=== PATIENT | male | born 1990 | race Caucasian/White ===

== ENCOUNTER 2018-05-14 06:53 | Day surgery (SDC) | payer MEDICAID ==
[2018-05-14] MEDS ORDERED: Midazolam 1 MG/ML 2 ML SDV IV ONE (06:54)
[2018-05-14] MEDS ORDERED: Propofol 200 MG/20 ML SDV IV ONE (06:54)
[2018-05-14] MEDS ORDERED: Sodium Chloride 0.9% 10 ML Syringe FLUSH PRN (07:30)
[2018-05-14] MEDS: Lactated Ringers 1,000 ML IV SCH (07:45)
--- NOTE | 2018-05-14 09:21 | PCM.OPNOTE ---
- General Post-Op/Procedure Note Date of Surgery/Procedure: 05/14/18 Operative Procedure(s): c scope with bx Findings: sigmoid colon polyp Pre Op Diagnosis: bleeding per rectum Post-Op Diagnosis: sigmoid colon polyp Anesthesia Technique: MAC Primary Surgeon: Alen Naidu Anesthesia Provider: Germaine Ash Pathology: colon polyp Complications: None Condition: Good Free Text/Narrative:: see dictation
--- NOTE | 2018-05-14 09:52 | OR ---
DATE OF OPERATION: 05/14/2018 SURGEON: Alen Naidu MD PROCEDURE PERFORMED: Colonoscopy with hot loop snare biopsy. PREOPERATIVE DIAGNOSIS: Bright red blood per rectum. POSTOPERATIVE DIAGNOSIS: Sigmoid colon polyp. INDICATIONS FOR PROCEDURE: This is a 27-year-old genetic male transitioning to female, who was referred with a history of bright red blood per rectum. He was offered and accepted colonoscopy. PROCEDURE IN DETAIL: After an excellent IV sedation was administered, digital rectal exam was performed. No marked abnormality was noted. Flexible colonoscope was inserted and advanced to the cecum. The prep was excellent. The following findings were noted: Ascending colon, unremarkable. Transverse colon, unremarkable. Descending colon, unremarkable. Sigmoid, at the distal sigmoid, polypoid lesion, biopsied with the hot snare and sent for permanent. Rectum, unremarkable anus. No marked hemorrhoidal tissue was noted. Colon was deflated. Scope was removed. Patient tolerated the procedure well, was taken to recovery in good condition. Results by letter. /[id number] /MODL
== END 2018-05-14 10:30 | disposition home or self-care (01) ==
LOC: FB.SDS 06:53
PROVIDERS: ATTEND Surgery
DX: K92.1 Melena (principal); K63.5 Polyp of colon; E66.9 Obesity, unspecified; Z68.32 Body mass index [BMI] 32.0-32.9, adult; F41.1 Generalized anxiety disorder; F33.1 Major depressive disorder, recurrent, moderate
CPT/HCPCS: 45385; 88305; J2250; J2704; J7120

== ENCOUNTER 2018-09-23 14:51 | Emergency (ER) | payer MEDICAID ==
--- NOTE | 2018-09-23 15:45 | EDM.PDOC ---
ED HPI GENERAL MEDICAL PROBLEM - General Chief Complaint: Gastrointestinal Problem Stated Complaint: RECTAL BLEEDING Time Seen by Provider: 09/23/18 15:22 Source of Information: Reports: Patient History Limitations: Reports: No Limitations - History of Present Illness INITIAL COMMENTS - FREE TEXT/NARRATIVE: 27-year-old transgender (male who is transitioning to female) who reports she has been having some rectal pain and intermittent bright red blood per rectum for 4-5 months and in fact had a colonoscopy performed in April by Dr. Naidu for similar symptoms which showed a sigmoid polyp that turned out to be benign and was completely normal otherwise who reports today at approximately 2: 30 PM had a bowel movement that had stool with bright red blood. She reports she does have pain in her perianal area and that pain is present when she has bowel movements. She reports pain is a 4/10 and is a dull pain with some sharp spikes when passing stool. She has no abdominal pain. No weakness or dizziness. She has had no nausea or vomiting. She has had no fevers. He has been able to eat and drink normally. She denies any trauma to her perianal area and she denies any recent sexual intercourse (she reports it's been about 6 months or longer since she had sexual intercourse) and she also denies placing anything in her rectum. There are no other associated signs or symptoms. There are no other modifying factors. 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: Other (see below) rectal pain Pain Score (Numeric/FACES): 4 - Related Data Allergies Allergy/AdvReac Type Severity Reaction Status Date / Time Poultry Allergy Airway Verified 09/23/18 15:18 Tightness Home Meds: Home Meds ClonazePAM [KlonoPIN] 0.5 tab PO BID PRN 03/20/18 [History] Estradiol 2 tab PO DAILY 03/20/18 [History] Spironolactone [Aldactone] 100 mg PO BID 03/20/18 [History] FLUoxetine HCl [Fluoxetine HCl] 1 cap PO DAILY 04/22/18 [History] Citalopram Hydrobromide [Celexa] 20 mg PO DAILY 05/14/18 [History] Docusate Sodium [Colace] 100 mg PO BID #60 cap 09/23/18 [Rx] Hydrocortisone Acetate [Anusol-Hc] 25 mg RC BID 5 Days #10 supp.rect 09/23/18 [ Rx] Past Medical History Gastrointestinal History: Reports: Colon Polyp Psychiatric History: Reports: ADHD, Anxiety, Depression, Panic Attack Other Psychiatric History: GENDER DYSPHORIA - Infectious Disease History Infectious Disease History: Reports: Chicken Pox - Past Surgical History Other HEENT Surgeries/Procedures: [place] teeth removed. GI Surgical History: Reports: Colonoscopy Social & Family History - Tobacco Use Smoking Status *Q: Unknown Ever Smoked (Nonsmoker) Second Hand Smoke Exposure: No - Caffeine Use Caffeine Use: Reports: Energy Drinks, Soda - Alcohol Use Alcohol Use History: No - Recreational Drug Use Recreational Drug Use: No - Living Situation & Occupation Occupation: Disabled (Transgender) ED ROS GENERAL - Review of Systems Review Of Systems: See Below Constitutional: Reports: No Symptoms HEENT: Reports: No Symptoms Respiratory: Reports: No Symptoms Cardiovascular: Reports: No Symptoms Endocrine: Reports: No Symptoms GI/Abdominal: Reports: Hematochezia, Other (Reports pain with bowel movements for some time with sometimes hard stools). Denies: Abdominal Pain : Reports: No Symptoms Musculoskeletal: Reports: No Symptoms Skin: Reports: No Symptoms Neurological: Reports: No Symptoms Hematologic/Lymphatic: Reports: No Symptoms Immunologic: Reports: No Symptoms ED EXAM, GENERAL - Physical Exam Exam: See Below Free Text/Narrative:: Orthostatic vital signs were performed and there were no orthostatic changes in blood pressure or pulse. Exam Limited By: No Limitations General Appearance: Alert, Anxious (But otherwise no distress), Obese Eye Exam: Bilateral Eye: EOMI, Normal Inspection, PERRL Ears: Normal External Exam Ear Exam: Bilateral Ear: Auricle Normal Nose: Normal Inspection, Normal Mucosa, No Blood Throat/Mouth: Normal Inspection, Normal Oropharynx, Normal Voice, No Airway Compromise Head: Atraumatic, Normocephalic Neck: Normal Inspection, Supple, Non-Tender, Full Range of Motion Respiratory/Chest: No Respiratory Distress, Lungs Clear, Normal Breath Sounds, No Accessory Muscle Use, Chest Non-Tender Cardiovascular: Normal Peripheral Pulses, Regular Rate, Rhythm, No JVD Peripheral Pulses: 2+: Radial (L), Radial (R) GI/Abdominal: Normal Bowel Sounds, Soft, Non-Tender, No Distention, No Mass Rectal (Males) Exam: Other (Some bright red blood noted around anus. No definite fissure or lesion seen. No erythema) Back Exam: Normal Inspection Extremities: Normal Inspection, Normal Range of Motion, Non-Tender, No Pedal Edema, Normal Capillary Refill Neurological: Alert, Oriented, CN II-XII Intact, Normal Cognition, No Motor/ Sensory Deficits Skin Exam: Warm, Dry, Intact, Normal Color, No Rash Course - Vital Signs Last Recorded V/S: Last Vital Signs Temp 36.1 C 09/23/18 15:40 Pulse 77 09/23/18 15:05 Resp 18 09/23/18 15:05 BP 114/63 09/23/18 15:05 Pulse Ox 99 09/23/18 15:05 Orthostatic Blood Pressure [ 117/77 Standing] Orthostatic Blood Pressure [ 122/79 Sitting] Orthostatic Blood Pressure [ 131/76 Supine] - Orders/Labs/Meds Orders: Active Orders 24 hr Category Date Time Status Orthostatic Vital Signs [RC] ASDIRECTED Care 09/23/18 15:45 Active Labs: Laboratory Tests 09/23/18 09/23/18 09/23/18 Range/Units 16:00 16:00 16:00 WBC 13.4 H (4.5-12.0) X10-3/uL RBC 4.95 (4.30-5.75) x10(6)uL Hgb 14.5 (13.5-17.8) g/dL Hct 42.4 (30.0-51.3) % MCV 85.6 (80-96) fL MCH 29.2 (27.7-33.6) pg MCHC 34.2 (32.2-35.4) g/dL RDW 12.5 (11.5-15.5) % Plt Count 310 (125-369) X10(3)uL MPV 9.0 (7.4-10.4) fL Neut % (Auto) 71.7 (46-82) % Lymph % (Auto) 18.3 (13-37) % [place] % (Auto) 6.3 (4-12) % Eos % (Auto) 3 (1.0-5.0) % Baso % (Auto) 0 (0-2) % Neut # (Auto) 9.6 H (1.6-8.3) # Lymph # (Auto) 2.5 (0.6-5.0) # [place] # (Auto) 0.8 (0.0-1.3) # Eos # (Auto) 0.5 (0.0-0.8) # Baso # (Auto) 0.0 (0.0-0.2) # Sodium 140 (135-145) mmol/L Potassium 3.9 (3.5-5.3) mmol/L Chloride 103 (100-110) mmol/L Carbon Dioxide 25 (21-32) mmol/L BUN 10 (7-18) mg/dL Creatinine 1.1 (0.70-1.30) mg/dL Est Cr Clr Drug Dosing 93.47 mL/min Estimated GFR (MDRD) > 60 (>60) BUN/Creatinine Ratio 9.1 (9-20) Glucose 107 (80-116) mg/dL Calcium 9.0 (8.6-10.2) mg/dL Total Bilirubin 0.4 (0.1-1.3) mg/dL AST 9 (5-25) IU/L ALT 18 (12-36) U/L Alkaline Phosphatase 69 (56-112) IU/L C-Reactive Protein 0.7 (0.5-0.9) mg/dL Total Protein 7.7 (6.0-8.0) g/dL Albumin 3.9 (3.5-5.2) g/dL Globulin 3.8 g/dL Albumin/Globulin Ratio 1.0 - Re-Assessments/Exams Free Text/Narrative Re-Assessment/Exam: 09/23/18 16:43: Patient's hemoglobin is normal. Her other lab tests including a CRP are reassuringly normal as well. She had no orthostatic changes on her blood pressure and pulse. Although I did not see a fissure, I think with her symptoms it is likely that this represents an anal fissure. I am going to place her on Colace to help off in her stool also place her on Anusol HC suppositories twice daily for the next 5 days. I have also referred the patient to Rubi Cristina NP as the patient will need further outpatient workup and possibly gastroenterology referral. Departure - Departure Time of Disposition: 16:50 Disposition: Home, Self-Care 01 Condition: Good Clinical Impression: Rectal bleeding - Discharge Information Prescriptions: Docusate Sodium [Colace] 100 mg PO BID #60 cap Hydrocortisone Acetate [Anusol-Hc] 25 mg RC BID 5 Days #10 supp.rect Instructions: Rectal Bleeding, [id number] Referrals: Rubi Cristina NP [Nurse Practitioner] - Forms: ED Department Discharge Additional Instructions: Your blood tests were reassuringly normal. I did not see any hemorrhoids or fissure around your anus, however, this bleeding is likely due to an anal fissure or hemorrhoid. I have given you a prescription for Colace to help soften your stools and I have also given you a prescription for Anusol HC suppositories to help decrease inflammation and help this to heal. I have also referred you to Rubi Cristina NP and you should receive a call to see her by next week. You may need additional outpatient testing and possibly referral to a clinical documentation clerk and she will oversee this. Back to the emergency department for fever, abdominal pain, weakness or dizziness, worsening bleeding or any other concerning sign or symptom. - My Orders Last 24 Hours: My Active Orders 09/23/18 15:45 Orthostatic Vital Signs [RC] ASDIRECTED - Assessment/Plan Last 24 Hours: My Active Orders 09/23/18 15:45 Orthostatic Vital Signs [RC] ASDIRECTED
== END 2018-09-23 16:57 | disposition home or self-care (01) ==
LOC: FB.ED 14:51
DX: K62.5 Hemorrhage of anus and rectum (principal); F41.9 Anxiety disorder, unspecified; F32.9 Major depressive disorder, single episode, unspecified; Z91.018 Allergy to other foods; Z79.899 Other long term (current) drug therapy
CPT/HCPCS: 36415; 80053; 85025; 86140; 99283